=== PATIENT | female | born 1980 | race Caucasian/White ===

== ENCOUNTER 2018-05-20 16:13 | Emergency (ER) | payer SELFPAY ==
[~2018-05-20] VITALS: Ht 157.5 cm; Wt 104.3 kg
[2018-05-20] MEDS ORDERED: IBUPROFEN 800 MG (MOTRIN) TAB PO ONE (16:30)
[2018-05-20] MEDS ORDERED: ACETAMINOPHEN 500 MG TAB (TYLENOL) PO ONE (16:30)
[2018-05-20] MEDS ORDERED: TRAM50TA2 (16:32)
[2018-05-20] MEDS ORDERED: ROBAXIN (16:32)
[2018-05-20] MEDS ORDERED: CYMBALTA (16:33)
[2018-05-20] MEDS ORDERED: GABAPENTIN (16:33)
--- NOTE | 2018-05-20 16:33 | ED Cough/URI ---
General Chief Complaint: Cough/Cold/Flu Symptoms Stated Complaint: COUGH.NAUSEATED. Source: patient Exam Limitations: no limitations History of Present Illness Date Seen by Provider: May 20, 2018 Time Seen by Provider: 16:30 Allergies and Home Medications Allergies Coded Allergies: amoxicillin (Verified Allergy, Unknown, 05/20/18) Past Klmqgdv-Mpvwsw-Yijpap Hx Patient Social History Alcohol Use: Denies Use Recreational Drug Use: No Recent Foreign Travel: No Contact w/Someone Who Travel: No Past Medical History Surgeries: No Respiratory: No Cardiac: No Neurological: No Genitourinary: No Gastrointestinal: No Musculoskeletal: Yes Fibromyalgia Endocrine: Yes Lupus Integumentary: No Physical Exam Vital Signs - First Documented 05/20/18 16:17 Temp 100.9 Pulse 111 Resp 18 B/P (MAP) 130/97 (108) Pulse Ox 96 O2 Delivery Room Air Capillary Refill : Height: '" Weight: lbs. oz. kg; BMI Method: Progress/Results/Core Measures Suspected Sepsis SIRS Temperature: Pulse: Respiratory Rate: Blood Pressure / Mean: Results/Orders Lab Results Laboratory Tests Test 05/20/18 16:24 Range/Units Group A Streptococcus Screen NEGATIVE NEGATIVE Micro Results Microbiology 05/20/18 Influenza Types A,B Antigen (ESTHE[facility]) - Final, Complete My Orders Orders - SAÚL URIBE Rapid Strep A Screen (05/20/18 16:29) Influenza A And B Antigens (05/20/18 16:29) Acetaminophen Tablet (Tylenol Tablet) (05/20/18 16:30) Ibuprofen Tablet (Motrin Tablet) (05/20/18 16:30) Medications Given in ED Current Medications Medications Dose Ordered Sig/[place] Route Start Time Stop Time Status Last Admin Dose Admin Acetaminophen 1,000 mg ONCE ONCE PO 05/20/18 16:30 05/20/18 16:33 DC 05/20/18 16:38 1,000 MG Ibuprofen 800 mg ONCE ONCE PO 05/20/18 16:30 05/20/18 16:33 DC 05/20/18 16:39 800 MG Vital Signs/I&O 05/20/18 16:17 Temp 100.9 Pulse 111 Resp 18 B/P (MAP) 130/97 (108) Pulse Ox 96 O2 Delivery Room Air Capillary Refill : Departure Impression Primary Impression: Viral upper respiratory illness Disposition: 01 HOME, SELF-CARE Condition: Stable/Unchanged Departure-Patient Inst. Decision time for Depature: 17:05 Referrals: NO,LOCAL PHYSICIAN (PCP) Primary Care Physician Patient Instructions: Viral Upper Respiratory Infection, Adult (DC) Add. Discharge Instructions: Continue to use ibuprofen and Tylenol as directed by the bottle for pain and fever relief. You may also use [id number] antitussives for cough relief. Follow-up with your primary care provider within 1 week for recheck. Return back to the emergency room for any worsening symptoms or concerns as needed. All discharge instructions reviewed with patient and/or family. Voiced understanding. SAÚL URIBE May 20, 2018 16:33
[2018-05-20] MEDS ORDERED: ATENOLOL (16:34)
[2018-05-20 17:23] VITALS: BP 130/97
== END 2018-05-20 17:23 | disposition home or self-care (01) ==
LOC: ER 16:15
DX: J06.9 Acute upper respiratory infection, unspecified (principal); Z88.0 Allergy status to penicillin
CPT/HCPCS: 87430; 87804

== ENCOUNTER → 2018-10-02 | Outpatient (CLI) | payer OTHER ==
[~2018-10-02] MED LIST: ATENOLOL; CYMBALTA; GABAPENTIN; ROBAXIN; TRAM50TA2
--- NOTE | 2018-10-02 14:38 | Diagnostic Imaging Report ---
PROCEDURE: US Thyroid. TECHNIQUE: Multiple real-time grayscale images were obtained of the thyroid in various projections. INDICATION: Mello's thyroiditis. COMPARISON: No prior studies are available for comparison. FINDINGS: Right lobe of the thyroid measures 5.3 x 1.9 x 1.5 cm and left lobe measures 4.5 x 1.2 x 1.2 cm. Isthmus is 5 mm in thickness. Both lobes are fairly homogeneous. No discrete thyroid mass is detected. IMPRESSION: Unremarkable thyroid ultrasound. Dictated by: Dictated on workstation # [id number]
--- NOTE | 2018-10-02 15:55 | Diagnostic Imaging Report ---
INDICATION: Lung nodule. TECHNIQUE: CT chest obtained with IV contrast bolus. COMPARISON: There is no prior study for comparison. FINDINGS: There are no enlarged mediastinal or hilar nodes. There are no enlarged axillary nodes or chest wall lesions. There is no pleural or pericardial fluid. Visualized portions of the upper abdomen demonstrate diffuse fatty infiltration of the liver. Lung parenchymal windows demonstrate some linear scarring and/or atelectasis in the lingular segment of the left upper lobe as well as in the left lower lobe. There is an area of thickening versus nodularity in the left lower lobe posteriorly along the posterior pleural surface, measuring about 7 mm, best seen on image 19 of series 3. There is a small 4 mm nodule in the right middle lobe just below the minor fissure, best seen on image 17 of series 3. There is some linear scarring or atelectasis in the right middle lobe. IMPRESSION: Small 4 mm nodule in the right middle lobe along the minor fissure. Small 7 mm area of nodularity versus thickening along the subpleural surface of the left lower lobe posteriorly as described above. We do not have previous studies for comparison. Suggest followup as clinically warranted. There is diffuse fatty infiltration of the liver. There are scattered areas of parenchymal scarring in both lungs. Dictated by: Dictated on workstation # [id number]
== END ==
LOC: RAD 13:56
PROVIDERS: ATTEND Family Medicine
DX: E06.3 Autoimmune thyroiditis (principal); K76.0 Fatty (change of) liver, not elsewhere classified; R91.1 Solitary pulmonary nodule
CPT/HCPCS: 71260; 76536